=== PATIENT | female | born 1990 | race Caucasian/White ===

== ENCOUNTER 2018-07-18 21:57 | Emergency (ER) | payer OTHER ==
--- NOTE | 2018-07-18 21:58 | PDOC ---
History of Present Illness - General Chief Complaint: Diarrhea Stated Complaint: DIARRHEA Time Seen by Provider: 07/18/18 21:58 History Source: Patient Exam Limitations: No Limitations - History of Present Illness Travel History: Yes ([place]) Initial Comments: 07/18/18 22:14 Ms Naylor is a 28 yo F who presents with a complaint of epigastric pain and diarrhea s/p return from [place]. Pt states, she has a h/o Lupus, complicated by Lupus nephritis (previously on Cellcept, now taking only Plaquinil), pt also has a h/o DVT on Coumadin. Pt states she returned from [place] 4 days ago. She began to have abdominal pain and diarrhea 3 days ago No fevers No chills No vomiting Stool liquid, non bloody, non mucoid Tolerating po No ill contacts PMH: Lupus, Nephritis, DVT PSH: denies Meds: coumadin 10mg po daily, plaquinil ALL: NKDA Social: denies alcohol, drug, cigarette use FH: non contributory ROS: GENERAL/CONSTITUTIONAL: No: fever, chills, weakness, loss of appetite. HEAD, EYES, EARS, NOSE AND THROAT: No: change in vision, sore throat CARDIOVASCULAR: No: chest pain, lightheadedness, palpitations, syncope RESPIRATORY: No: cough, shortness of breath, wheezing, hemoptysis, stridor. GASTROINTESTINAL: Yes: diarrhea, epigastric pain No: nausea, vomiting,, rectal bleeding, constipation. GENITOURINARY: No: dysuria, hematuria, frequency, urgency, flank pain. MUSCULOSKELETAL: No: back pain, neck pain, joint pain, muscle swelling or pain SKIN: No: lesions, pallor, rash or easy bruising. NEUROLOGIC: No: headache, vertigo, paresthesias, weakness ENDOCRINE: No: unexplained weight gain or loss HEMATOLOGIC/LYMPHATIC: No: anemia, easy bleeding, swelling nodes. PE: GENERAL: The patient is in no acute distress. HEAD: Normal with no signs of trauma. EYES: PERRLA, EOMI, sclera anicteric, conjunctiva clear. ENT: Ears normal, nares patent, oropharynx clear without exudates. Moist mucous membranes. NECK: Normal range of motion, supple without lymphadenopathy, JVD, or masses. LUNGS: Breath sounds equal, clear to auscultation bilaterally. No wheezes, and no crackles. HEART:Regular rate and rhythm, normal S1 and S2 without murmur, rub or gallop. ABDOMEN: Soft, epigastric tenderness, No guarding, no rebound. No masses palpable. EXTREMITIES: Normal range of motion, no edema. NEUROLOGICAL: Cranial nerves II through XII grossly intact. Normal speech. No focal neurological deficits. MUSCULOSKELETAL: Back non-tender to palpation, no CVA tenderness SKIN: Warm, Dry, normal turgor, no rashes or lesions noted. 07/18/18 22:22 Past History - Past Medical History Allergies/Adverse Reactions: Allergies Allergy/AdvReac Type Severity Reaction Status Date / Time No Known Allergies Allergy Verified 09/12/17 16:04 Home Medications: Ambulatory Orders Hyoscyamine Odt [Levsin Odt -] 0.125 mg PO BID PRN #20 tab.rapdis 07/19/18 levoFLOXacin [Levaquin] 750 mg PO DAILY #5 tab 07/19/18 COPD: No Disorders: Yes (NEPHRITIS) - Immunization History Immunization Up to Date: Yes - Suicide/Smoking/Psychosocial Hx Smoking Status: No Smoking History: Never smoked Number of Cigarettes Smoked Daily: 0 Hx Alcohol Use: No Drug/Substance Use Hx: No ED Treatment Course - LABORATORY CBC & Chemistry Diagram: 07/18/18 22:02 07/18/18 22:02 Medical Decision Making - Medical Decision Making 07/18/18 22:28 Pt presents from recent travel with non bloody diarrhea No fever DD includes but is not limited to: Travelers diarrhea, colitis will do Labs Stool cultures Will give Cipro after HCG 07/18/18 23:14 Laboratory Tests 07/18/18 07/18/18 22:02 22:02 WBC 4.9 Hgb 12.6 Hct 38.0 Plt Count 213 Urine Blood 3+ H Urine Nitrite Negative Ur Leukocyte Esterase Negative Urine HCG, Qual Negative 07/18/18 23:17 Laboratory Tests 07/18/18 22:02 Urine RBC 10-20 Urine WBC 0-3 likely a result of pt Lupus Nephritis 07/18/18 23:25 Laboratory Tests 07/18/18 22:22 PT with INR 29.9 H INR 2.72 H 07/18/18 23:50 Laboratory Tests 07/18/18 22:02 Sodium 138 Potassium 4.2 Chloride 103 Carbon Dioxide 23 Anion Gap 12 BUN 13 Creatinine 0.6 Random Glucose 93 07/18/18 23:53 Laboratory Tests 07/18/18 22:02 Total Amylase 40 Will discharge to home Pt unable to give stool specimen as she has had no diarrhea Will ask pt to follow up with PMD I do not believe this patient has dysentry Clinical Impression: 07/19/18 00:01 *DC/Admit/Observation/Transfer Diagnosis at time of Disposition: Travelers' diarrhea - Discharge Dispostion Disposition: HOME Condition at time of disposition: Stable Decision to Admit order: No - Prescriptions Prescriptions: Hyoscyamine Odt [Levsin Odt -] 0.125 mg PO BID PRN #20 tab.rapdis PRN Reason: abdominal pain levoFLOXacin [Levaquin] 750 mg PO DAILY #5 tab - Referrals - Patient Instructions Printed Discharge Instructions: DI for Diarrhea and Traveler's Diarrhea -- Adult Additional Instructions: Thank you for coming in to the ER today Please be sure to stay hydrated as much as possible Please take tylenol for pain You can also take Bentyl (sent to the pharmacy) Please be sure to follow up with your PMD re: your INR and for re assessment (The antibiotics you were given, can affect your INR by making it higher) Please monitor yourself for fevers and chills Please see your primary doctor within 2-3 days - Post Discharge Activity Forms/Work/School Notes: Back to Work
[2018-07-18 22:08] VITALS: BP 110/71; PULSE 95; TEMP 97.3; BMI 21.7
[2018-07-18 22:34] LABS: BASO % 0.8 % (0-2.0); EOS % 0.5 % (0-4.5); HEMOGLOBIN 12.6 GM/dl (10.7-15.3); LYMPH % 17.1 % (8-40); MCH 30.3 pg (25.7-33.7); MCHC 33.2 g/dl (32.0-36.0); MEAN CELL VOLUME 91.4 fl (80-96); MEAN PLT VOLUME 8.8 fl (7.5-11.1); MONO % 12.2 % (3.8-10.2); NEUT % 69.4 % (42.8-82.8); PLATELET COUNT 213 K/MM3 (134-434); RBC 4.17 M/mm3 (3.60-5.2); RDW 11.6 % (11.6-15.6); WHITE BLOOD COUNT 4.9 K/mm3 (4.0-10.8)
[2018-07-18 22:41] LABS: HCG,QUALITATIVE URINE Negative
[2018-07-18 22:49] LABS: PH,URINE 5.5 (4.5-8); URINE APPEARANCE Clear; URINE BILIRUBIN Negative (NEGATIVE); URINE COLOR Yellow; URINE GLUCOSE (UA) Negative (NEGATIVE); URINE KETONE Negative (NEGATIVE); URINE LEUK ESTERASE Negative (NEGATIVE); URINE NITRITE Negative (NEGATIVE); URINE PROTEIN 1+ (NEGATIVE); URINE UROBILINOGEN 0.2 (0.2-1.0)
[2018-07-18 23:09] LABS: EPI CELLS 1+ /HPF; URINE BACTERIA 1+ /hpf (NEGATIVE); URINE WBC 0-3 (0-5); YEAST 1+
[2018-07-18 23:19] LABS: INR 2.72 (0.82-1.09); PROTHROMBIN TIME (PATIENT) 29.9 SEC (10.2-13.0)
[2018-07-18 23:43] LABS: ALK PHOS 68 U/L (32-92); AMYLASE 40 U/L (25-125); ANION GAP 12 MMOL/L (8-16); BILIRUBIN,TOTAL 0.6 mg/dl (0.2-1.0); BLOOD UREA NITROGEN 13 mg/dl (7-18); CHLORIDE 103 mmol/L (98-107); CO2 23 mmol/L (22-28); CREATININE 0.6 mg/dl (0.6-1.3); GLUCOSE,RANDOM 93 mg/dl (74-106); POTASSIUM 4.2 mmol/L (3.5-5.1); SGOT/AST 26 U/L (10-42); SGPT/ALT 15 U/L (10-40); SODIUM 138 mmol/L (136-145); TOT PROT 7.8 g/dl (6.4-8.3)
[2018-07-19 00:11] LABS: LIPASE 139 U/L (73-393)
== END 2018-07-19 00:14 | disposition home or self-care (01) ==
LOC: FER 21:57
DX: A08.8 Other specified intestinal infections (principal); M32.9 Systemic lupus erythematosus, unspecified; M32.14 Glomerular disease in systemic lupus erythematosus
CPT/HCPCS: 36415; 80053; 81003; 81015; 82150; 83690; 84703; 85025; 85610; 87086; 99283-25

== ENCOUNTER 2021-01-17 13:01 | Emergency (ER) | payer OTHER ==
[2021-01-17 13:19] VITALS: TEMP 99.1; BMI 33.6
[2021-01-17] MEDS ORDERED: FUROSEMIDE 40 MG/4 ML INJECTABLE VIAL IVPUSH ONE (14:39)
[2021-01-17] MEDS ORDERED: morphine CARPU-JECT 4 MG/1 ML DISP.SYRIN IVPUSH ONE ×2 (14:40→18:09)
[2021-01-17] MEDS ORDERED: FUROSEMIDE 40 MG/4 ML INJECTABLE VIAL ONE (14:45)
[2021-01-17] MEDS ORDERED: NITROGLYCERIN SUBLINGUAL 1/150 0.4 MG TAB SL ONE ×3 (14:53→17:26)
[2021-01-17] MEDS ORDERED: ASPIRIN 81 MG CHEWABLE TABLETS PO ONE (15:00)
[2021-01-17] MEDS ORDERED: ASPIRIN 81 MG CHEWABLE TABLETS ONE (15:01)
[2021-01-17] MEDS ORDERED: ENOXAPARIN NA (PORCINE) 100 MG/1 ML DISP.SYRIN SQ ONE (15:01)
[2021-01-17] MEDS ORDERED: ENOXAPARIN NA (PORCINE) 80 MG/0.8 ML DISP.SYRIN SQ ONE ×2 (15:08→15:09)
[2021-01-17] MEDS ORDERED: morphine SULFATE 4 MG/ML VIAL ONE ×2 (15:09→18:31)
[2021-01-17] MEDS ORDERED: NITROGLYCERIN 2% OINTMENT - 1GM PACKET TD ONE ×2 (15:09→15:18)
[2021-01-17 15:18] LABS: BASO % 0.4 % (0-2.0); EOS % 0.1 % (0-4.5); HEMATOCRIT 22.4 % (32.4-45.2); HEMOGLOBIN 7.3 GM/dL (10.7-15.3); LYMPH % 3.8 % (8-40); MCH 27.7 pg (25.7-33.7); MCHC 32.5 g/dl (32.0-36.0); MEAN CELL VOLUME 85.2 fl (80-96); MEAN PLT VOLUME 9.1 fl (7.5-11.1); MONO % 6.4 % (3.8-10.2); NEUT % 89.3 % (42.8-82.8); PLATELET COUNT 120 10^3/uL (134-434); RBC 2.63 M/mm3 (3.60-5.2); RDW 16.4 % (11.6-15.6)
[2021-01-17 15:24] LABS: INR 1.52 (0.83-1.09); PROTHROMBIN TIME (PATIENT) 18.2 SEC (9.7-13.0)
[2021-01-17 15:31] LABS: VENOUS BASE EXCESS 1.1 mmol/L (-2-2); VENOUS PCO2 41.6 mmHg (38-52); VENOUS PH 7.411 (7.310-7.410)
[2021-01-17 15:41] LABS: ACTIVATED PTT 101.2 SECONDS (25.2-36.5)
[2021-01-17 15:42] LABS: ANISOCYTOSIS 1+; MACROCYTOSIS 1+; PLATELET ESTIMATE DECREASED
[2021-01-17 16:17] LABS: CHLORIDE 106 mmol/L (98-107); SODIUM 140 mmol/L (136-145)
[2021-01-17] MEDS ORDERED: POTASSIUM CHLORIDE TABS 20 MEQ TABLET.ER (FP) PO ONE ×2 (16:40→19:43)
[2021-01-17 18:44] VITALS: BP 121/75; PULSE 85
[2021-01-17 19:08] LABS: BASO % 0.3 % (0-2.0); HEMATOCRIT 20.7 % (32.4-45.2); LYMPH % 5.1 % (8-40); MCH 27.7 pg (25.7-33.7); MCHC 32.5 g/dl (32.0-36.0); MEAN CELL VOLUME 85.4 fl (80-96); MEAN PLT VOLUME 9.5 fl (7.5-11.1); MONO % 6.5 % (3.8-10.2); NEUT % 88.1 % (42.8-82.8); PLATELET COUNT 129 10^3/uL (134-434); RBC 2.42 M/mm3 (3.60-5.2); RDW 16.1 % (11.6-15.6); WHITE BLOOD COUNT 13.4 K/mm3 (4.0-10.0)
[2021-01-17 19:11] LABS: HEMOGLOBIN 6.7 GM/dL (10.7-15.3)
[2021-01-17 19:17] LABS: CHLORIDE 106 mmol/L (98-107); SODIUM 141 mmol/L (136-145)
[2021-01-17 19:19] LABS: CALCIUM 8.6 mg/dL (8.5-10.1)
[2021-01-17 19:20] LABS: BLOOD UREA NITROGEN 20.5 mg/dL (7-18); GLUCOSE,RANDOM 112 mg/dL (74-106)
[2021-01-17 19:23] LABS: CREATININE 0.9 mg/dL (0.55-1.3); SGOT/AST 24 U/L (15-37); SGPT/ALT 33 U/L (13-61)
[2021-01-17 19:24] LABS: BILIRUBIN,TOTAL 0.3 mg/dL (0.2-1); TOT PROT 6.6 g/dl (6.4-8.2)
[2021-01-17 19:26] LABS: ALK PHOS 202 U/L (45-117)
[2021-01-17 19:27] LABS: ANION GAP 9 MMOL/L (8-16); CO2 26 mmol/L (21-32)
[2021-01-17] MEDS ORDERED: ACETAMINOPHEN INJECTION 100 ML IVPB ONE (19:47)
[2021-01-17] MEDS ORDERED: KCL 10 MEQ IVPB 10 MEQ/100 ML INFUS.BAG IVPB ONE (19:47)
[2021-01-17] MEDS ORDERED: ACETAMINOPHEN 1000 MG/100 ML VIAL (NON FORMULARY) IVPB ONE (19:50)
[2021-01-17] MEDS ORDERED: KCL 10 MEQ IVPB 10 MEQ/100 ML INFUS.BAG IVPB SCH (20:00)
[2021-01-17 20:19] LABS: ANISOCYTOSIS 1+; MACROCYTOSIS 0; OVALOCYTE 1+; PLATELET ESTIMATE DECREASED; TEAR DROP CELLS 1+
[2021-01-17] MEDS ORDERED: BENZOCAINE/MENTH/CETYLPYRD CL 1 EACH LOZENGE MM PRN (20:21)
[2021-01-17] MEDS ORDERED: morphine CARPU-JECT 2 MG/1 ML DISP.SYRIN IVPUSH ONE (22:30)
[2021-01-17] MEDS ORDERED: MORPHINE SULFATE 2 MG/ML VIAL ONE (22:31)
== END 2021-01-18 00:30 | disposition short-term general hospital (02) ==
LOC: JER 13:01
PROC: 3E0333Z Introduction of Anti-inflammatory into Peripheral Vein, Percutaneous Approach (ICD-10-PCS; principal; 2021-01-17)
PROC: 3E033GC Introduction of Other Therapeutic Substance into Peripheral Vein, Percutaneous Approach (ICD-10-PCS; 2021-01-17)
PROC: 3E033NZ Introduction of Analgesics, Hypnotics, Sedatives into Peripheral Vein, Percutaneous Approach (ICD-10-PCS; 2021-01-17)
PROC: 3E033NZ Introduction of Analgesics, Hypnotics, Sedatives into Peripheral Vein, Percutaneous Approach (ICD-10-PCS; 2021-01-17)
PROC: 3E033NZ Introduction of Analgesics, Hypnotics, Sedatives into Peripheral Vein, Percutaneous Approach (ICD-10-PCS; 2021-01-17)
PROC: 3E033GC Introduction of Other Therapeutic Substance into Peripheral Vein, Percutaneous Approach (ICD-10-PCS; 2021-01-17)
DX: J81.0 Acute pulmonary edema (principal); I40.9 Acute myocarditis, unspecified; D64.9 Anemia, unspecified
CPT/HCPCS: 36415; 71045-TC-FY; 76604; 80053; 82550; 82803; 83605; 83880; 84484; 85025; 85610; 85730; 87040; 93005; 93010; 93308; 99291; C9803; J0131; U0003; U0005

== ENCOUNTER 2023-09-23 11:04 | Emergency (ER) | payer OTHER ==
[2023-09-23] MEDS ORDERED: AMOX TR/POT CLAV 875MG/125MG TABLETS (FP) ONE (13:15)
[2023-09-23] MEDS: AMOX TR/POT CLAV 875MG/125MG TABLETS (FP) PO ONE (13:17)
[2023-09-23] MEDS ORDERED: DIPHTH,PERTUSS(ACELL),TET 0.5 ML DISP.SYRIN IM ONE (13:29)
[2023-09-23] MEDS: DIPHTH,PERTUSS(ACELL),TET 0.5 ML DISP.SYRIN IM ONE (13:33)
== END 2023-09-23 13:35 | disposition home or self-care (01) ==
LOC: FER 11:04
PROC: 3E0234Z Introduction of Serum, Toxoid and Vaccine into Muscle, Percutaneous Approach (ICD-10-PCS; principal; 2023-09-23)
DX: M79.672 Pain in left foot (principal); S90.852A Superficial foreign body, left foot, initial encounter; W25.XXXA Contact with sharp glass, initial encounter
CPT/HCPCS: 73630-TC-LT; 90715; 99283-25

== ENCOUNTER 2023-10-06 04:28 | Day surgery (SDC) | payer OTHER ==
[2023-10-05 15:44] VITALS: BMI 25.0
[2023-10-06] MEDS ORDERED: LIDOCAINE HCL 2% (20ML MULTI-DOSE VIAL) ONE (11:08)
[2023-10-06] MEDS ORDERED: BUPIVACAINE HCL/PF 0.5% (5MG/ML) 10 ML VIAL ONE (12:13)
[2023-10-06] MEDS ORDERED: MIDAZOLAM HCL 2 MG/2 ML SINGLE DOSE VIAL ONE (12:28)
[2023-10-06] MEDS ORDERED: FENTANYL CITRATE/PF 50 MCG/ML VIAL ONE (12:28)
[2023-10-06] MEDS: ceFAZolin SODIUM 1 GM VIAL IVPB ONE (12:30)
[2023-10-06] MEDS ORDERED: DEXAMETHASONE SOD PHOSPHATE 4 MG/1 ML VIAL ONE ×2 (12:33)
[2023-10-06] MEDS ORDERED: ceFAZolin SODIUM 1 GM VIAL ONE ×2 (12:33)
[2023-10-06] MEDS ORDERED: ONDANSETRON 4 MG/2 ML VIAL ONE ×2 (12:33)
[2023-10-06] MEDS: LIDOCAINE HCL 2% (50ML VIAL) INF ONE (12:38)
[2023-10-06] MEDS ORDERED: PROPOFOL 20 ML ONE (12:51)
[2023-10-06] MEDS: BUPIVACAINE HCL/PF 0.5% (5 MG/ML) 30 ML VIAL IJ ONE (13:00)
[2023-10-06 13:50] VITALS: RESP 16
[2023-10-06 14:05] VITALS: BP 88/53; PULSE 66; TEMP 97.7
== END 2023-10-06 14:55 | disposition home or self-care (01) ==
LOC: JASU-SURG 04:28
PROVIDERS: ATTEND Student in an Organized Health Care Education/Training Program
PROC: 0JBR0ZZ Excision of Left Foot Subcutaneous Tissue and Fascia, Open Approach (ICD-10-PCS; principal; 2023-10-06 12:00)
PROC: 0JCR0ZZ Extirpation of Matter from Left Foot Subcutaneous Tissue and Fascia, Open Approach (ICD-10-PCS; 2023-10-06 12:00)
DX: M79.5 Residual foreign body in soft tissue (principal)
CPT/HCPCS: 81025; 87070; 87205; 88300-TC; 94760

== ENCOUNTER 2023-10-26 16:12 | Inpatient (IN) | payer OTHER ==
[2023-10-26] MEDS ORDERED: methylPREDNISolone NA SUCC 125 MG/2 ML VIAL ONE (17:52)
[2023-10-26] MEDS: methylPREDNISolone NA SUCC 125 MG/2 ML VIAL IVPUSH ONE (18:05)
[2023-10-26] MEDS: morphine CARPU-JECT 2 MG/1 ML DISP.SYRIN IVPUSH ONE (18:05)
[2023-10-26 18:21] LABS: BASO % 0.4 % (0-2.0); EOS % 0.7 % (0-4.5); HEMATOCRIT 35.1 % (32.4-45.2); HEMOGLOBIN 11.8 GM/dL (10.7-15.3); LYMPH % 32.3 % (8-40); MCH 31.9 pg (25.7-33.7); MCHC 33.7 g/dl (32.0-36.0); MEAN CELL VOLUME 94.7 fl (80-96); MEAN PLT VOLUME 7.9 fl (7.5-11.1); MONO % 13.5 % (3.8-10.2); NEUT % 53.1 % (42.8-82.8); PLATELET COUNT 110 10^3/uL (134-434); RDW 13.1 % (11.6-15.6); WHITE BLOOD COUNT 2.4 K/mm3 (4.0-10.0)
[2023-10-26 19:13] LABS: ALBUMIN 3.8 g/dl (3.4-5.0); BILIRUBIN,TOTAL 0.5 mg/dL (0.2-1); BLOOD UREA NITROGEN 16.3 mg/dL (7-18); CALCIUM 8.8 mg/dL (8.5-10.1); CREATININE 0.8 mg/dL (0.55-1.3); POTASSIUM 3.9 mmol/L (3.5-5.1); TOT PROT 7.2 g/dl (6.4-8.2)
[2023-10-26] MEDS ORDERED: morphine SULFATE 4 MG/ML VIAL ONE ×2 (19:47→21:49)
[2023-10-26] MEDS ORDERED: ACETAMINOPHEN 325 MG TABLET (FP) ONE (19:47)
[2023-10-26] MEDS: morphine CARPU-JECT 4 MG/1 ML DISP.SYRIN IVPUSH ONE ×2 (19:52→21:50)
[2023-10-26] MEDS: ACETAMINOPHEN 500 MG TABLET (FP) PO ONE (19:53)
[2023-10-26] MEDS ORDERED: QUEtiapine FUMARATE 100 MG TABLET (FP) ONE (22:25)
[2023-10-26] MEDS: QUEtiapine FUMARATE 200 MG TABLET PO ONE (22:27)
[2023-10-27] MEDS ORDERED: morphine CARPU-JECT 2 MG/1 ML DISP.SYRIN IVPUSH PRN (00:01)
[2023-10-27] MEDS: QUEtiapine FUMARATE 200 MG TABLET PO SCH (00:22)
[2023-10-27] MEDS ORDERED: morphine SULFATE 4 MG/ML VIAL ONE (00:29)
[2023-10-27] MEDS: morphine CARPU-JECT 2 MG/1 ML DISP.SYRIN IVPUSH PRN (00:32)
[2023-10-27] MEDS ORDERED: morphine SULFATE 4 MG/ML VIAL IVPUSH PRN (00:45)
[2023-10-27] MEDS ORDERED: ACETAMINOPHEN 1000 MG/100 ML BAG IVPB PRN (01:02)
[2023-10-27 02:19] LABS: INR 2.13 (0.83-1.09); PROTHROMBIN TIME (PATIENT) 23.5 SEC (9.7-13.0)
[2023-10-27] MEDS: HYDROmorphone HCl 2 MG/ML VIAL IVPUSH PRN ×2 (02:37→09:52)
[2023-10-27 05:09] VITALS: BMI 24.4
[2023-10-27 08:29] LABS: HEMATOCRIT 33.9 % (32.4-45.2); HEMOGLOBIN 11.8 GM/dL (10.7-15.3); INR 2.07 (0.83-1.09); MCH 32.5 pg (25.7-33.7); MCHC 34.9 g/dl (32.0-36.0); MEAN CELL VOLUME 93.2 fl (80-96); MEAN PLT VOLUME 8.4 fl (7.5-11.1); PLATELET COUNT 117 10^3/uL (134-434); PROTHROMBIN TIME (PATIENT) 22.9 SEC (9.7-13.0); RBC 3.64 M/mm3 (3.60-5.2); RDW 12.9 % (11.6-15.6)
[2023-10-27 08:32] LABS: ACTIVATED PTT 95.6 SECONDS (25.2-36.5)
[2023-10-27 08:37] LABS: WHITE BLOOD COUNT 1.6 K/mm3 (4.0-10.0)
[2023-10-27] MEDS: metoPROLOL SUCCINATE 25 MG TAB.SR.24H (FP) PO SCH (09:12)
[2023-10-27] MEDS: MYCOPHENOLATE MOFETIL 500 MG TABLET PO SCH (09:12)
[2023-10-27] MEDS: predniSONE 20 MG TABLET (UD) PO SCH (09:12)
[2023-10-27] MEDS: ENALAPRIL MALEATE 10 MG TABLET PO SCH (09:12)
[2023-10-27] MEDS ORDERED: oxyCODONE HCL 5 MG TABLET PO PRN (09:17)
[2023-10-27 09:23] LABS: ERYTHROCYTE SEDIMENTATION RATE 34 mm/hr (0-20)
[2023-10-27] MEDS: ACETAMINOPHEN 325 MG TABLET (FP) PO PRN (09:33)
[2023-10-27 09:37] LABS: ALK PHOS 78 U/L (45-117); ANION GAP 4 mmol/L (4-13); BILIRUBIN,TOTAL 0.5 mg/dL (0.2-1); BLOOD UREA NITROGEN 12.9 mg/dL (7-18); CALCIUM 9.2 mg/dL (8.5-10.1); CHLORIDE 104 mmol/L (98-107); CO2 24 mmol/L (21-32); CREATININE 0.6 mg/dL (0.55-1.3); GLUCOSE,RANDOM 107 mg/dL (74-106); MAGNESIUM 2.1 mg/dL (1.8-2.4); PHOSPHOROUS 3.1 mg/dL (2.5-4.9); POTASSIUM 3.9 mmol/L (3.5-5.1); SGOT/AST 26 U/L (15-37); SGPT/ALT 33 U/L (13-61); SODIUM 132 mmol/L (136-145); TOT PROT 7.4 g/dl (6.4-8.2)
[2023-10-27 09:46] LABS: ANISOCYTOSIS 0; MACROCYTOSIS 0
[2023-10-27] MEDS ORDERED: WARFARIN NA 5 MG TABLET PO SCH (10:00)
[2023-10-27] MEDS: BACITRACIN ZINC 15 GM TUBE TOPICAL OINTMENT TP SCH (11:23)
[2023-10-27] MEDS: HYDROXYCHLOROQUINE SO4 200 MG TABLET (FP) PO SCH (11:43)
[2023-10-27] MEDS ORDERED: traMADol HCL 50 MG TABLET PO PRN (12:57)
[2023-10-27] MEDS: HYDROmorphone HCl 2 MG/ML VIAL IVPB PRN (14:25)
[2023-10-27 14:27] VITALS: TEMP 98.4
[2023-10-27] MEDS ORDERED: PATIENT'S OWN MEDICATION (NON-FORMULARY) (Clonazepam [Clonazepam] 1 MG Tablet) PO PRN (16:38)
[2023-10-27] MEDS ORDERED: clonazePAM 0.5 MG TABLET PO PRN (16:39)
[2023-10-27] MEDS ORDERED: hydrOXYzine PAMOATE 50 MG CAPSULE (FP) PO PRN (17:18)
[2023-10-27] MEDS ORDERED: hydrOXYzine PAMOATE 25 MG CAPSULE (FP) PO PRN (17:32)
[2023-10-27] MEDS: WARFARIN NA 7.5 MG TABLET PO SCH (19:11)
[2023-10-27] MEDS: oxyCODONE HCL 5 MG TABLET PO PRN (22:28)
[2023-10-28 07:12] VITALS: BP 92/70; PULSE 81; RESP 17
[2023-10-28 07:48] LABS: BASO % 0.3 % (0-2.0); EOS % 0.4 % (0-4.5); HEMATOCRIT 33.8 % (32.4-45.2); HEMOGLOBIN 11.5 GM/dL (10.7-15.3); LYMPH % 41.9 % (8-40); MCHC 33.9 g/dl (32.0-36.0); MEAN CELL VOLUME 94.6 fl (80-96); MEAN PLT VOLUME 8.4 fl (7.5-11.1); MONO % 10.4 % (3.8-10.2); PLATELET COUNT 122 10^3/uL (134-434); RBC 3.58 M/mm3 (3.60-5.2); RDW 12.8 % (11.6-15.6); WHITE BLOOD COUNT 3.8 K/mm3 (4.0-10.0)
[2023-10-28 07:51] LABS: INR 2.55 (0.83-1.09)
[2023-10-28 09:08] LABS: POTASSIUM 4.1 mmol/L (3.5-5.1)
[2023-10-28 09:22] LABS: BLOOD UREA NITROGEN 20.6 mg/dL (7-18); CALCIUM 9.3 mg/dL (8.5-10.1); CREATININE 0.8 mg/dL (0.55-1.3)
[2023-10-28] MEDS ORDERED: WARFARIN NA 7.5 MG TABLET PO SCH (10:00)
[2023-10-28] MEDS: SUMAtriptan SUCCINATE 50 MG TABLET PO ONE (10:07)
[2023-10-28] MEDS ORDERED: SUMAtriptan SUCCINATE 50 MG TABLET PO PRN (10:30)
[2023-10-28] MEDS ORDERED: WARFARIN NA 5 MG TABLET PO SCH (18:00)
== END 2023-10-28 11:40 | disposition home or self-care (01) | DRG 547 ==
LOC: JER 16:12 → JERBED 22:02 → OBSVTOIN 10-27 00:01 → J7W 10-27 00:52
PROVIDERS: ADMIT Internal Medicine; ATTEND Internal Medicine
DX: M32.9 Systemic lupus erythematosus, unspecified (principal); F31.9 Bipolar disorder, unspecified; F41.9 Anxiety disorder, unspecified; G43.909 Migraine, unspecified, not intractable, without status migrainosus
CPT/HCPCS: 36415; 80048; 80053; 83735; 84100; 84703; 85025; 85610; 85651; 85730; 86140; 99285-25; G0378; J7517